=== PATIENT | male | born 1975 | race Caucasian/White ===

== ENCOUNTER → 2021-09-11 18:25 | Outpatient (CLI) | payer OTHER, MEDICAID, SELFPAY ==
--- NOTE | 2021-09-11 | DI.MRI.S_ITS ---
PROCEDURE: MR KNEE LT WO CON INDICATIONS: Pain in left knee TECHNIQUE: Noncontrast sagittal PD fast spin echo and T2 fast spin echo with fat saturation, sagittal 3-D FLASH with fat saturation; coronal T1 spin echo and PD fast spin echo with fat saturation, and axial PD fast spin echo with fat saturation through the knee. COMPARISON: Outside Film, CR, XR KNEE 3 VIEWS LEFT, 08/11/2021, 18:26. FINDINGS: Image quality: Excellent. Menisci: There is tear of the posterior horn of the lateral meniscus extending to the posterior root (series 6, image 23; series 11, image 25). The medial meniscus demonstrates normal morphology and internal signal. Cruciate ligaments: There is edema in anterior cruciate ligament suspicious for partial tear. The posterior cruciate ligament is intact. Medial structures: There is grade 2 tear of the medial collateral ligament. The semimembranosus tendon insertions and meniscocapsular junction appear intact. Visualized portions of the pes anserinus tendons appear normal. No abnormal bursal fluid. Lateral structures: The lateral collateral ligament, long and short heads of the biceps femoris tendon appear intact. The popliteus tendon appears normal. Iliotibial band appears normal. Anterior structures: The quadriceps and patellar tendons appear intact. Patellar alignment is normal. No femoral trochlear dysplasia or ventral trochlear prominence. No edema in the infrapatellar fat pad. Bones and cartilage: There is edema involving the anterior aspect of the lateral femoral condyle and posterior aspect of the lateral tibial plateau, consistent with bone marrow contusions. A small focal subchondral linear hyperintense signal is noted in the anterior aspect of the lateral femoral condyle, compatible with osteochondral fracture (series 11 image 17). Linear hypointensities are seen in the posterior lateral femoral condyle compatible with trabecular injuries. There is tricompartmental cartilage fibrillation with preserved cartilage thickness. Joint space: There is moderate knee joint effusion. There is a small Huang's cyst. Note is made of varicosity posterior to the knee. Normal appearing synovial plicae are incidentally noted. IMPRESSION: 1. Partial anterior cruciate ligament tear. 2. Grade 2 tear of the medial collateral ligament. 3. Bone marrow contusions/trabecular injuries of the anterior lateral femoral condyle and lateral posterior tibial plateau. There is a small focal osteochondral fracture in the anterior aspect of the lateral femoral condyle. Trabecular injuries of the posterior lateral tibial plateau are noted. 4. Tear of the posterior horn of the lateral meniscus extending to the posterior root. 5. Moderate knee joint effusion. 6. A moderate-sized Huang cyst. 7. Varicose veins posterior to the knee. Dictated by: Willie Shah M.D. on 09/14/2021 at 8:27 Approved by: Willie Shah M.D. on 09/14/2021 at 8:48
== END ==
PROVIDERS: Family Provider Family Medicine; PCP Family Medicine; Referring Provider Orthopaedic Surgery; Visit Provider Orthopaedic Surgery
DX: S83.512A Sprain of anterior cruciate ligament of left knee, initial encounter (principal); S72.422A Displaced fracture of lateral condyle of left femur, initial encounter for closed fracture; S83.412A Sprain of medial collateral ligament of left knee, initial encounter; S83.282A Other tear of lateral meniscus, current injury, left knee, initial encounter; M25.462 Effusion, left knee; M71.22 Synovial cyst of popliteal space [Baker], left knee; M25.562 Pain in left knee; I83.92 Asymptomatic varicose veins of left lower extremity; X58.XXXA Exposure to other specified factors, initial encounter
CPT/HCPCS: 73721